=== PATIENT | female | born 1980 | race Caucasian/White ===

== ENCOUNTER 2016-11-20 08:52 | Inpatient (IN) | payer OTHER, BC ==
[2016-11-20 09:53] VITALS: BMI 29.9
[2016-11-20] MEDS ORDERED: Lactated Ringer's 1,000 ML IV SCH ×2 (10:00→10:30)
[2016-11-20] MEDS ORDERED: cefOXitin Sodium 1 GM in Sodium Chloride 0.9% 100 ML IVPB ONE (10:00)
[2016-11-20 10:30] VITALS: RESP 18
[2016-11-20] MEDS ORDERED: Morphine 1 mg/ml preservative-free Inj(Duramorph) ONE (10:44)
[2016-11-20] MEDS ORDERED: ePHEDrine 50 mg/ml Inj ONE (10:44)
[2016-11-20] MEDS ORDERED: Phenylephrine 10 mg/ml Inj ONE (10:46)
[2016-11-20] MEDS ORDERED: Oxycodone/Acetaminophen 5/325 mg Tab PO PRN ×5 (11:01→18:37)
[2016-11-20] MEDS ORDERED: DiphenhydrAMINE 50 mg/ml Inj IVP PRN ×2 (11:01→18:37)
[2016-11-20 11:05] LABS: HEMATOCRIT 35.4 % (34.0-47.0); MEAN CELL VOLUME 91.4 fl (81.0-99.0); MEAN CORPUSCULAR HEMOGLOBIN 31.3 pg (27.0-31.0); MEAN CORPUSCULAR HGB CONC 34.2 g/dL (33.0-37.0); RED CELL DISTRIBUTION WIDTH 12.8 % (11.5-14.5)
[2016-11-20] MEDS ORDERED: Oxytocin 30 units/LR 500ML 30 U/500 ML BAG IV ONE ×2 (11:13→12:44)
--- NOTE | 2016-11-20 11:24 | OBADHP ---
Datetime: 11/20/2016 11:13 Admit Comment, IP Provider: iup at 38+weeks previous section with cerclage admitted in labor for del aung and removal of cerelage Pelvic Type - PN: Adequate Extremities - PN: Normal Abdomen - PN: Normal Back - PN: Normal Breast - PN: Normal Lungs - PN: Normal Heart - PN: Normal Thyroid - PN: Normal Neurologic - PN: Normal HEENT - PN: Normal General - PN: Normal Presentation-Admit: Compound FHR - Baseline A Provider: 120 Membranes, Provider: Intact Contraction Comments Provider: irregular Gestation - Est Wks by US: 38+ Vital Signs Provider: Reviewed; Within Normal Limits IP Chief Complaint: Uterine contractions NICHD Variability Prov Fetus A: Moderate 6-25bpm NICHD Accel Fetus A IP Provider: 10X10 FHR Category Provider Fetus A: Category I NICHD Decel Fetus A IP Provider: None Dilatation, Provider: ft Effacement, Provider: 0 Station, Provider: -2 Genitourinary Exam: Normal DTRs - PN: Normal EGA AdmitDate IP: 38.6 IP Adm Impression: Term, intrauterine ; Active labor IP Admit Plan: Admit to unit; Initiate Section protocol
[2016-11-20] MEDS ORDERED: Midazolam 2 MG/2 ML VIAL ONE (12:34)
--- NOTE | 2016-11-20 13:42 | OBDS ---
DELIVERY PERSONNEL Nurse [employer] Certified: na Delivery Doctor: Shannon Ballard MD Scrub Nurse: Vero Blue OBT Dinner Cook: Paola Martínez RN/Filomena Fitzgerald Anesthesiologist: Alejandrina Mabry MD Manager French: [email or web address] Resident: na MATERNAL INFORMATION Delivery Anesthesia: Spinal Maternal Complications: None Provider Comments: delivery of live baby boy 9/10 by low transverse sectionand repair LABOR SUMMARY EDC: 11/28/2016 00:00 No. Babies in Womb: 1 LABOR INFORMATION Group B Beta Strep: Negative Steroids Given: None Reason Steroids Not Administered: Not Applicable STAGES OF LABOR Stage 3 hrs: 0 Stage 3 min: 1 VAGINAL DELIVERY Episiotomy: None Laceration Extension: N/A Laceration Type: None CSECTION DELIVERY Primary Indication: Repeat Elective Labor: Labor CSection Incision: Lower Uterine Transverse Uterine Closure: Double-layer closure BABY A INFORMATION Infant Delivery Date/Time: 11/20/2016 12:43 Method of Delivery: Born in Route : No : N/A Forceps: N/A Vacuum Extraction: Successful Shoulder Dystocia : No SHOULDER DYSTOCIA BABY A Delivery Date/Time: 11/20/2016 12:43 PRESENTATION/POSITION BABY A Presentation: Cephalic Cephalic Presentation: Vertex Breech Presentation: N/A PLACENTA INFORMATION BABY A Placenta Delivery Time : 11/20/2016 12:44 Placenta Method of Delivery: Spontaneous Placenta Status: Delivered INFANT INFORMATION BABY A Gestational Age at Delivery: 38.6 Gestational Status: Term Outcome : Liveborn Condition : Stable Sex: Male IDENTIFICATION/MEDS BABY A ID Band Number: [id number] WEIGHT/LENGTH BABY A Birthweight (gms): 37 (Annotations: Data stored by N on behalf of user) Infant Weight (lb): 0 Weight (oz): 1
[2016-11-20] MEDS ORDERED: Bisacodyl 5mg EC Tab PO PRN ×2 (13:43→18:37)
[2016-11-20] MEDS: Lactated Ringer's 1,000 ML IV SCH (22:14)
--- NOTE | 2016-11-21 03:00 | OP ---
PROCEDURE DATE: 11/20/2016 PREOPERATIVE DIAGNOSES: Term , previous section and labor with cerclage. POSTOPERATIVE DIAGNOSES: Term , previous section and labor with cerclage and attempt to removal of cerclage. PROCEDURE: Repeat section. SURGEON: Dr. Ballard. LOCOMOTIVE SUPERVISOR: Dr. Slater. TYPE OF ANESTHESIA: Spinal anesthesia. ANESTHESIA ADMINISTERED BY: Dr. Mabry. FINDINGS: From surgery, it was live baby boy, Apgars 9 and 10, clear fluid, cord with 3 vessels, 2 nuchal cords around the neck. Placenta, anterior tubes and ovaries within normal limits. ESTIMATED BLOOD LOSS: About 800 mL. DESCRIPTION OF PROCEDURE: With the patient in the supine position, under spinal anesthesia, the patient was prepped and draped in the usual sterile manner. Dr. Slater was there to assist in preparing the patient for surgery. After this was done, a low transverse incision was made in the uterus, Dr. Slater assisting all the way, taken down through the fascia in layers, fascia incised and extended bilaterally, Dr. Slater doing his side, I am doing my side. Peritoneum was grasped in the midline and opened vertically. The abdominopelvic cavity, pericolic gutters were packed with wet laps, pushing the from the operative field. A bladder flap was established after which Dr. Slater assisting all the way. After that was done, the low transverse incision was made laterally. Baby was removed without any complication. We used vacuum assisted delivery without any complications. Baby was given to nanny/household manager, who resuscitated the baby. After this was done, the placenta was removed intact. Uterus was exteriorized and cleaned and uterus was closed in 2 layers maintaining hemostasis. After this was done, the peritoneum was closed with 1 Vicryl. The muscles approximated with 1 Vicryl. The fascia was closed with 1 Vicryl running interlocking stitch starting at each end and finished in the midline, Dr. Slater doing his half and I am doing my half. After that was done, the subcutaneous tissue was approximated with 2-0 plain and skin was closed in a subcuticular fashion with 3-0 Prolene. The patient tolerated the procedure well and was in satisfactory condition on the way to the recovery room and Dr. Slater was there from the beginning of the surgery to the end of the last stitch. Henry Ballard MD
[2016-11-21] MEDS: Lactated Ringer's 1,000 ML IV SCH ×2 (05:00→11:30)
[2016-11-21 06:58] LABS: HEMATOCRIT 31.6 % (34.0-47.0); MEAN CELL VOLUME 92.1 fl (81.0-99.0); MEAN CORPUSCULAR HEMOGLOBIN 31.3 pg (27.0-31.0); WHITE BLOOD COUNT 10.4 K/uL (4.8-10.8)
--- NOTE | 2016-11-21 11:30 | OBPPN ---
Datetime: 11/21/2016 11:18 PP Pain Prov: Within normal limits PP Nausea Prov: Denies PP Flatus Prov: Yes PP BM Prov: No PP Breasts Prov: Normal PP Heart Prov: Normal PP Lungs Prov: Normal PP Abdomen/Uterus Prov: Normal PP Lochia Prov: Normal PP Vulva/Perineum Prov: Normal PP CVA Tenderness Prov: Normal PP Extremities Prov: Normal PP C/S Incision Prov: Normal PP Progress Prov: Normal PP Impression Prov: Normal progression PP Plan Prov: Continue present management PP Progress Note Prov: stable pod1 incision healing well and clean IP PP Procedures: None Vital Signs Provider PP: Reviewed; Within Normal Limits
[2016-11-21] MEDS: Oxycodone/Acetaminophen 5/325 mg Tab PO PRN (21:59)
--- NOTE | 2016-11-22 08:54 | OBPPN ---
Datetime: 11/22/2016 08:50 PP Pain Prov: Within normal limits PP Nausea Prov: Denies PP Flatus Prov: Yes PP BM Prov: No PP Breasts Prov: Normal PP Heart Prov: Normal PP Lungs Prov: Normal PP Abdomen/Uterus Prov: Normal PP Lochia Prov: Normal PP Vulva/Perineum Prov: Normal PP CVA Tenderness Prov: Normal PP Extremities Prov: Normal PP C/S Incision Prov: Normal PP Progress Prov: Normal PP Impression Prov: Normal progression PP Plan Prov: Continue present management PP Progress Note Prov: stable pod2 continue present care IP PP Procedures: None Vital Signs Provider PP: Reviewed; Within Normal Limits
[2016-11-22] MEDS: Oxycodone/Acetaminophen 5/325 mg Tab PO PRN ×2 (09:02→20:36)
--- NOTE | 2016-11-23 09:15 | OBDCSUM ---
Datetime: 11/23/2016 09:10 Discharged to, Provider: Home Follow up at, Provider: Disch Instr Activity: May be up to bathroom; May be up for meals; May Shower Disch Instr Diet: Regular Discharge Instructions, Provider: Routine instructions given Discharge Diagnosis, Provider: Term Delivered Discharge Time: 11/23/2016 09:10 Follow up in weeks, Provider: 1week Disch Referrals: None Disch Activity Restrictions: No exercising; No lifting; No driving; Minimize walking; Minimize stair -climbing; No sexual activity; Nothing in vagina - [place], tampons, douche Contraception after Delivery: Undecided
[2016-11-23 18:54] VITALS: BP 108/63; PULSE 64; TEMP 98.5; O2SAT 99
== END 2016-11-23 12:25 | disposition home or self-care (01) | DRG 766 ==
LOC: H.EROB2 08:52 → H.L&D 09:03 → H.EROB2 09:50 → H.L&D 09:51 → H.OB/GYN 17:22
PROVIDERS: ADMIT Specialist; ATTEND Specialist
PROC: 10D00Z1 Extraction of Products of Conception, Low, Open Approach (ICD-10-PCS; principal; 2016-11-20)
PROC: 4A0HXCZ Measurement of Products of Conception, Cardiac Rate, External Approach (ICD-10-PCS; 2016-11-20)
DX: O34.211 Maternal care for low transverse scar from previous cesarean delivery (principal); N85.8 Other specified noninflammatory disorders of uterus; Z37.0 Single live birth; Z3A.38 38 weeks gestation of pregnancy